=== PATIENT | female | born 1970 | race Native Hawaiian/Other Pacific Islander ===

== ENCOUNTER 2016-08-28 09:20 | Outpatient (CLI) | payer OTHER | END 2016-08-28 19:23 | disposition home or self-care (01) | LOC: MAMMO 09:20 | DX: Z12.31 Encounter for screening mammogram for malignant neoplasm of breast (principal) | CPT/HCPCS: G0202-TC ==

== ENCOUNTER 2016-09-21 10:12 | Outpatient (CLI) | payer OTHER | END 2016-09-21 19:43 | disposition home or self-care (01) | LOC: US 10:12 | DX: R92.8 Other abnormal and inconclusive findings on diagnostic imaging of breast (principal) ==

== ENCOUNTER 2017-01-09 08:00 | Day surgery (SDC) | payer OTHER ==
[2017-01-04 10:59] LABS: PLATELET COUNT 378 K/uL (152-353)
[2017-01-04 11:20] LABS: POTASSIUM 4.1 mmol/L (3.6-5.2); SODIUM 138 mmol/L (136-145)
== END 2017-01-09 12:00 | disposition home or self-care (01) ==
LOC: OR 08:00
PROVIDERS: Student in an Organized Health Care Education/Training Program
PROC: 0H9U3ZZ Drainage of Left Breast, Percutaneous Approach (ICD-10-PCS; principal; 2017-01-09)
PROC: BH41ZZZ Ultrasonography of Left Breast (ICD-10-PCS; 2017-01-09)
DX: N60.02 Solitary cyst of left breast (principal)
CPT/HCPCS: 36415; 80053; 85027; J0690; J2001; J2250; J2405; J2704; J3010

== ENCOUNTER 2017-09-18 09:27 | Outpatient (CLI) | payer OTHER | END 2017-09-18 20:00 | disposition home or self-care (01) | LOC: MAMMO 09:27 | DX: Z12.31 Encounter for screening mammogram for malignant neoplasm of breast (principal) ==

== ENCOUNTER 2018-09-23 09:52 | Outpatient (CLI) | payer OTHER | END 2018-09-23 19:34 | disposition home or self-care (01) | LOC: MAMMO 09:52 | DX: Z12.31 Encounter for screening mammogram for malignant neoplasm of breast (principal) ==

== ENCOUNTER 2020-03-26 12:52 | Outpatient (CLI) | payer OTHER | END 2020-03-26 20:37 | disposition home or self-care (01) | LOC: MAMMO 12:52 | DX: Z12.31 Encounter for screening mammogram for malignant neoplasm of breast (principal) ==

== ENCOUNTER 2020-11-30 11:07 | Outpatient (CLI) | payer OTHER | END 2020-11-30 23:59 | disposition home or self-care (01) | LOC: MRI 11:07 | PROVIDERS: ATTEND Family Medicine | DX: M54.16 Radiculopathy, lumbar region (principal); M54.5 Low back pain; M54.31 Sciatica, right side ==

== ENCOUNTER 2020-12-14 10:13 | Outpatient (CLI) | payer OTHER | END 2020-12-14 21:54 | disposition home or self-care (01) | LOC: RAD 10:13 | PROVIDERS: ATTEND Nurse Practitioner Family | DX: M25.571 Pain in right ankle and joints of right foot (principal) ==

== ENCOUNTER 2021-05-10 09:49 | Outpatient (CLI) | payer OTHER | END 2021-05-10 18:58 | disposition home or self-care (01) | LOC: MAMMO 09:49 | PROVIDERS: ATTEND Obstetrics & Gynecology | DX: Z12.31 Encounter for screening mammogram for malignant neoplasm of breast (principal) ==

== ENCOUNTER 2021-06-20 10:41 | Outpatient (CLI) | payer OTHER ==
[2021-06-20 11:52] LABS: PLATELET COUNT 282 K/uL (152-353)
== END 2021-06-20 20:24 | disposition home or self-care (01) ==
LOC: LABW 10:41
PROVIDERS: ATTEND Nurse Practitioner Family
DX: D72.0 Genetic anomalies of leukocytes (principal); D72.828 Other elevated white blood cell count
CPT/HCPCS: 85007; 85027

== ENCOUNTER 2021-12-28 10:00 | Outpatient (CLI) | payer OTHER | END 2021-12-28 19:18 | disposition home or self-care (01) | LOC: RAD 10:00 | PROVIDERS: ATTEND Nurse Practitioner Family | DX: I10 Essential (primary) hypertension (principal); R06.02 Shortness of breath ==

== ENCOUNTER 2022-01-04 09:21 | Outpatient (CLI) | payer OTHER | END 2022-01-04 18:53 | disposition home or self-care (01) | LOC: RESP 09:21 | PROVIDERS: ATTEND Nurse Practitioner Family | DX: R06.02 Shortness of breath (principal) ==

== ENCOUNTER 2022-04-05 13:27 | Outpatient (CLI) | payer OTHER | END 2022-04-05 20:41 | disposition home or self-care (01) | LOC: LABW 13:27 | PROVIDERS: ATTEND Internal Medicine Cardiovascular Disease | DX: I50.9 Heart failure, unspecified (principal) | CPT/HCPCS: 83880 ==

== ENCOUNTER 2022-05-02 09:33 | Outpatient (CLI) | payer OTHER | END 2022-05-02 20:57 | disposition home or self-care (01) | LOC: RESP 09:33 | PROVIDERS: ATTEND Internal Medicine Cardiovascular Disease | DX: I10 Essential (primary) hypertension (principal) ==

== ENCOUNTER 2022-06-01 14:41 | Outpatient (CLI) | payer OTHER | END 2022-06-01 18:54 | disposition home or self-care (01) | LOC: MAMMO 14:41 | PROVIDERS: ATTEND Obstetrics & Gynecology | DX: Z12.31 Encounter for screening mammogram for malignant neoplasm of breast (principal) ==